=== PATIENT | female | born 1990 | race Asian ===

== ENCOUNTER 2019-11-23 10:13 | Inpatient (IN) | payer BC ==
[~2019-11-23] VITALS: Ht 166.4 cm; Wt 72.7 kg
[2019-11-23 11:16] VITALS: BP 107/60
[2019-11-23] MEDS ORDERED: OXYTOCIN 30U/ 0.9% NaCL 500ML 500 ML IV ONE (11:31)
[2019-11-23] MEDS ORDERED: LIDOCAINE 1%, 20ML ONE (11:47)
[2019-11-23] MEDS ORDERED: OXYTOCIN 30U/ 0.9% NaCL 500ML 500 ML ONE ×2 (11:47→19:31)
[2019-11-23] MEDS ORDERED: MISOPROSTOL 200 MCG TABLET ONE (11:47)
[2019-11-23] MEDS ORDERED: NEWBORN KIT ONE (11:47)
[2019-11-23] MEDS ORDERED: TERBUTALINE 1 MG/ML, 1ML IVPush PRN (12:00)
[2019-11-23] MEDS ORDERED: PENICILLIN GK 5,000,000 UNITS in DEXTROSE 5% 100 ML IVPB ONE (12:00)
[2019-11-23] MEDS ORDERED: TERBUTALINE 1 MG/ML, 1ML SQ PRN (12:00)
[2019-11-23] MEDS ORDERED: ONDANSETRON 2MG/ML, 2ML IVPush PRN (12:00)
[2019-11-23] MEDS ORDERED: FENTANYL PF 100 MCG/2ML IVPush PRN (12:00)
[2019-11-23] MEDS ORDERED: FENTANYL PF 100 MCG/2ML IV PRN (12:00)
[2019-11-23] MEDS: LACTATED RINGERS 1,000 ML IV SCH ×3 (12:07→13:38)
[2019-11-23 12:14] LABS: BASOPHILS # (AUTO) 0.04 x10^3/uL (0-0.1); BASOPHILS % (AUTO) 1 % (0-1); EOSINOPHILS # (AUTO) 0.08 x10^3/uL (0-0.4); EOSINOPHILS % (AUTO) 1 % (1-7); LYMPHOCYTES # (AUTO) 1.01 x10^3/uL (1-3.4); LYMPHOCYTES % (AUTO) 13 % (22-44); MD NO; MEAN CORPUSCULAR HEMOGLOBIN 30.1 pg (27.0-34.8); MEAN CORPUSCULAR HGB CONC 33.7 g/dL (32.4-35.8); MEAN CORPUSCULAR VOLUME 89.4 fL (80-100); MEAN PLATELET VOLUME 9.2 fL (7.4-10.4); MONOCYTES # (AUTO) 0.61 x10^3/uL (0.2-0.8); MONOCYTES % (AUTO) 8 % (2-9); NEUTROPHILS % (AUTO) 77 % (42-75); PLATELET COUNT 189 x10^3/uL (130-400); RED BLOOD COUNT 4.67 x10^6/uL (3.82-5.3); RED CELL DISTRIBUTION WIDTH 13.6 % (9.6-15.2)
[2019-11-23] MEDS ORDERED: FENTANYL PF 100 MCG/2ML ONE (12:36)
[2019-11-23] MEDS ORDERED: FENTANYL/BUPIV./NS/PF 250 ML EPIDCONT ONE (12:46)
[2019-11-23] MEDS ORDERED: BUPIVACAINE 0.25% ONE (12:46)
[2019-11-23] MEDS ORDERED: FENTANYL/BUPIV./NS/PF 250 ML EPIDCONT SCH (13:07)
[2019-11-23] MEDS ORDERED: LACTATED RINGERS 1,000 ML IV SCH (13:07)
[2019-11-23] MEDS ORDERED: EPHEDRINE 50 MG/ML, 1ML IVPush PRN (13:30)
[2019-11-23] MEDS ORDERED: LACTATED RINGERS 1,000 ML IVBOLUS PRN (13:30)
[2019-11-23] MEDS ORDERED: PENICILLIN GK 2,500,000 UNITS in DEXTROSE 5% 100 ML IVPB SCH (16:00)
[2019-11-23] MEDS ORDERED: ONDANSETRON 2MG/ML, 2ML ONE (17:06)
[2019-11-23] MEDS ORDERED: CALCIUM CARBONATE 500 MG TAB.CHEW PO PRN (19:00)
[2019-11-23] MEDS ORDERED: ONDANSETRON 2MG/ML, 2ML IV PRN (19:00)
[2019-11-23] MEDS ORDERED: SIMETHICONE 80 MG CHEW TAB PO PRN (19:00)
[2019-11-23] MEDS ORDERED: OXYcodone/APAP 5/325MG TABLET PO PRN (19:00)
[2019-11-23] MEDS ORDERED: MISOPROSTOL 200 MCG TABLET PR PRN (19:00)
[2019-11-23] MEDS ORDERED: IBUPROFEN 600 MG TABLET ONE (19:31)
[2019-11-23] MEDS: OXYTOCIN 30U/ 0.9% NaCL 500ML 500 ML IV SCH (19:34)
[2019-11-23] MEDS: IBUPROFEN 600 MG TABLET PO PRN (19:35)
[2019-11-23 20:30] VITALS: BP 103/57
[2019-11-24 00:45] VITALS: BP 102/57
[2019-11-24] MEDS: IBUPROFEN 600 MG TABLET PO PRN ×4 (01:38→20:25)
[2019-11-24 03:30] LABS: BASOPHILS # (AUTO) 0.03 x10^3/uL (0-0.1); BASOPHILS % (AUTO) 0 % (0-1); EOSINOPHILS # (AUTO) 0.03 x10^3/uL (0-0.4); EOSINOPHILS % (AUTO) 0 % (1-7); LYMPHOCYTES # (AUTO) 1.26 x10^3/uL (1-3.4); LYMPHOCYTES % (AUTO) 13 % (22-44); MD NO; MEAN CORPUSCULAR HGB CONC 33.1 g/dL (32.4-35.8); MEAN CORPUSCULAR VOLUME 90.6 fL (80-100); MEAN PLATELET VOLUME 8.8 fL (7.4-10.4); MONOCYTES # (AUTO) 0.79 x10^3/uL (0.2-0.8); MONOCYTES % (AUTO) 8 % (2-9); NEUTROPHILS # (AUTO) 7.46 x10^3/uL (1.8-6.8); NEUTROPHILS % (AUTO) 78 % (42-75); PLATELET COUNT 157 x10^3/uL (130-400); RED BLOOD COUNT 3.78 x10^6/uL (3.82-5.3); RED CELL DISTRIBUTION WIDTH 13.3 % (9.6-15.2)
[2019-11-24 04:40] VITALS: BP 102/69
[2019-11-24] MEDS: OXYTOCIN 30U/ 0.9% NaCL 500ML 500 ML IV SCH ×2 (04:49→14:49)
[2019-11-24] MEDS: PRENATAL VIT/IRON/FA 1 EACH TABLET PO SCH (07:22)
[2019-11-24 07:40] VITALS: BP 108/72
[2019-11-24 12:39] VITALS: BP 107/74
[2019-11-24 19:15] VITALS: BP 112/73
[2019-11-24] MEDS: DOCUSATE 100 MG CAPSULE PO PRN (20:25)
[2019-11-25] MEDS: OXYTOCIN 30U/ 0.9% NaCL 500ML 500 ML IV SCH ×2 (00:49→10:49)
[2019-11-25] MEDS: IBUPROFEN 600 MG TABLET PO PRN ×2 (02:50→08:42)
[2019-11-25 08:21] VITALS: BP 109/69
[2019-11-25] MEDS: DOCUSATE 100 MG CAPSULE PO PRN (08:42)
[2019-11-25] MEDS: PRENATAL VIT/IRON/FA 1 EACH TABLET PO SCH (08:42)
[2019-11-25] MEDS ORDERED: IBUP-1222 PO (08:51)
[2019-11-25] MEDS ORDERED: PREN1TAB98 PO (08:52)
== END 2019-11-25 11:45 | disposition home or self-care (01) | DRG 805 ==
LOC: LDOP 10:13 → LDIP 11:45 → 2NW 20:31
PROVIDERS: ADMIT Obstetrics & Gynecology; ATTEND Obstetrics & Gynecology
PROC: 10E0XZZ Delivery of Products of Conception, External Approach (ICD-10-PCS; principal; 2019-11-23)
PROC: 0KQM0ZZ Repair Perineum Muscle, Open Approach (ICD-10-PCS; 2019-11-23)
PROC: 3E0R3BZ Introduction of Anesthetic Agent into Spinal Canal, Percutaneous Approach (ICD-10-PCS; 2019-11-23)
PROC: 00HU33Z Insertion of Infusion Device into Spinal Canal, Percutaneous Approach (ICD-10-PCS; 2019-11-23)
DX: O42.913 Preterm premature rupture of membranes, unspecified as to length of time between rupture and onset of labor, third trimester (principal); O60.14X0 Preterm labor third trimester with preterm delivery third trimester, not applicable or unspecified; Z37.0 Single live birth; O70.1 Second degree perineal laceration during delivery; Z3A.36 36 weeks gestation of pregnancy; Z82.3 Family history of stroke; Z20.828 Contact with and (suspected) exposure to other viral communicable diseases
CPT/HCPCS: 36415; 84112; 85025; 86592; 86850; 86900; 87081; 87635; G0378; J2405; J2540; J3010; J2590; J7120